=== PATIENT | male | born 1995 | race Caucasian/White ===

== ENCOUNTER 2017-08-20 10:19 | Emergency (ER) | payer SELFPAY ==
[~2017-08-20] VITALS: Ht 193 cm; Wt 125.0 kg
[2017-08-20 11:17] VITALS: BP 140/89
== END 2017-08-20 11:19 | disposition home or self-care (01) ==
LOC: ER 10:45
DX: H60.92 Unspecified otitis externa, left ear (principal)
CPT/HCPCS: 99283; Z7610